=== PATIENT | male | born 1980 | race Caucasian/White ===

== ENCOUNTER 2023-03-01 11:54 | Emergency (ER) | payer OTHER, SELFPAY ==
[2023-03-01 12:04] VITALS: BP 143/93; PULSE 73; RESP 16; TEMP 37.1; O2SAT 99
--- NOTE | 2023-03-01 12:35 | ED.GENADULT ---
HPI - General Adult General Chief complaint: Headache Stated complaint: Headache Time Seen by Provider: 03/01/23 12:20 Source: patient Mode of arrival: ambulatory Limitations: no limitations History of Present Illness HPI narrative: 42 yo M presents with c/o intermittent migraines for the past two wks. Last 3 days migraine has been constant with light sensitivity. No N/v. Pt wearing sunglasses. Taking OTC meds with no relief. alert and oriented. No hx of migraines. requesting work note. All systems reviewed and negative except as noted above. Related Data Home Medications Medication Instructions Recorded Confirmed No Home Medications 03/01/23 03/01/23 Allergies Allergy/AdvReac Type Severity Reaction Status Date / Time No Known Allergies Allergy Verified 03/01/23 12:06 Review of Systems Review of Systems: CONSTITUTIONAL: Denies fever, chills, or sweats. EYES: Denies visual changes, redness, or discharge. ENT: Denies rhinorrhea, congestion, sore throat, or otalgia. CARDIOVASCULAR: Denies chest pain, palpitations, or edema. RESPIRATORY: Denies cough or dyspnea. GASTROINTESTINAL: Denies abdominal pain, nausea, vomiting, or diarrhea. GENITOURINARY: Denies dysuria or hematuria. SKIN: Denies rash or itching. MUSCULOSKELETAL: Denies back pain, joint pain, or myalgia. NEUROLOGIC: reports headache, light sensitivity. denies numbness, or weakness. PSYCHIATRIC: Denies anxiety or depression. All other systems reviewed are negative, except as documented in HPI. PMFSH Comments At time of signature, agree with nursing past medical, surgical, social and family history. There is no relevant family history pertinent to the presenting complaint. Exam Narrative: GENERAL: This is a well-nourished, well-developed patient, in no apparent distress. HEAD: normocephalic, atraumatic. EYES: PERRL. Sclera clear/white. Vision is grossly intact. EARS: External ears normal, auditory canals clear and without drainage, TMs normal without perforation. Hearing grossly intact. NOSE: External nose normal with no obvious nasal discharge, nares without redness, no rhinorrhea. THROAT: Mucous membranes moist, posterior pharynx clear. NECK: Neck supple, non-tender without lymphadenopathy, masses or thyromegaly. CARDIOVASCULAR: Regular rate and rhythm without murmurs, gallops, or rubs. RESPIRATORY: Clear to auscultation. Breath sounds equal bilaterally. No wheezes, rales, or rhonchi. SKIN: warm, Dry, intact with no suspicious lesions or rash, good texture and turgor. NEURO: awake, alert, and oriented to person, place and time. There were no obvious focal neurologic abnormalities. EXTREMITIES: No joint tenderness, effusion, or edema noted. Course Course Level of Care: Express Care Visit Reevaluation(s) Reevaluation #1: pt reported pain improved after toradol, benadryl, ondansetron. alert and awake. Vital Signs Vital signs: Vital Signs Temperature 37.1 C 03/01/23 12:04 Pulse Rate 73 03/01/23 12:04 Respiratory Rate 16 03/01/23 12:04 Blood Pressure 143/93 H 03/01/23 12:04 Pulse Oximetry 99 03/01/23 12:04 Oxygen Delivery Room Air 03/01/23 12:04 Temperature 37.1 C 03/01/23 12:04 Pulse Rate 73 03/01/23 12:04 Respiratory Rate 16 03/01/23 12:04 Blood Pressure 143/93 H 03/01/23 12:04 Pulse Oximetry 99 03/01/23 12:04 Oxygen Delivery Room Air 03/01/23 12:04 Reviewed Medical Decision Making MDM Narrative Medical decision making narrative: pain improved prior to DC. no neurological deficits. recommend he follow up with PCP for further evaluation of his headaches. recommend he go to the ER for any worsening of symptoms. Patient is aware of diagnosis, understands and agrees to treatment plan. Anticipatory guidance given. Patient agrees to follow-up as directed and is aware of reasons to seek care at the emergency department. Portions of this record may have been created with voice recognition
[2023-03-01] MEDS: diphenhydrAMINE HCl CAP 25 MG CAPSULE 50 MG PO (12:51)
[2023-03-01] MEDS: ONDANSETRON HCL ODT 4 MG TABLET SUBLINGUAL (12:51)
[2023-03-01] MEDS: KETOROLAC (*BKC) 60 MG/2 ML VIAL IM (12:52)
== END 2023-03-01 13:20 | disposition home or self-care (01) ==
PROVIDERS: Emergency Provider Nurse Practitioner Family
DX: R51.9 Headache, unspecified (principal)
CPT/HCPCS: 96372; 99203; A9270; G0463; J1885